=== PATIENT | male | born 1985 | race Caucasian/White ===

== ENCOUNTER 2020-08-14 10:15 | Emergency (ER) | payer OTHER ==
[~2020-08-14] VITALS: Ht 167.6 cm; Wt 72.6 kg
[2020-08-14] MEDS ORDERED: PROAIR HFA8.5 GM IH (10:37)
[2020-08-14] MEDS ORDERED: OSEL75CA PO (18:02)
[2020-08-14] MEDS ORDERED: PREDNISONE20 MG PO (18:02)
[2020-08-14] MEDS ORDERED: ALBUTEROL0.63 MG/3 IH (18:02)
[2020-08-14] MEDS ORDERED: IVERMECTIN3 MG PO ×2 (18:02→18:17)
== END 2020-08-14 19:36 | disposition home or self-care (01) ==
LOC: ER 10:15
DX: U07.1 COVID-19 (principal); B34.9 Viral infection, unspecified; J11.1 Influenza due to unidentified influenza virus with other respiratory manifestations

== ENCOUNTER 2022-01-08 11:05 | Emergency (ER) | payer OTHER ==
[~2022-01-08] VITALS: Ht 180.3 cm; Wt 110.7 kg
[~2022-01-08 11:05] MED LIST: ALBUTEROL0.63 MG/3 IH; IVERMECTIN3 MG PO; OSEL75CA PO; PREDNISONE20 MG PO; PROAIR HFA8.5 GM IH
[2022-01-08] MEDS ORDERED: ALTACE2.5 MG PO (11:31)
== END 2022-01-08 13:53 | disposition home or self-care (01) ==
LOC: ER 11:05
DX: L20.9 Atopic dermatitis, unspecified (principal); Z20.822 Contact with and (suspected) exposure to COVID-19